=== PATIENT | female | born 1935 | race Caucasian/White ===

== ENCOUNTER → 2017-10-25 | Emergency (ER) | payer MEDICARE ==
[~2017-10-25] MED LIST: Furosemide 40 MG/4 ML VIAL ONE
[2017-10-25 21:56] LABS: #Eosinphils 0.1 thou/uL (0.0-0.7); #Lymphocytes 1.3 thou/uL (1.20-3.40); #Monocytes 0.4 thou/uL (0.11-0.59); #Neutrophils 4.6 thou/uL (1.40-6.50); %Basophils 0.6 % (0.0-1.0); %Eosinophils 0.8 % (0.0-10.0); %Monocytes 6.1 % (0.0-10.0); %Neutrophils 72.5 % (42.0-75.0); Hemoglobin 13.3 g/dL (12.0-16.0); Mean Corpuscular HGB CONC 32.6 g/dL (32.0-36.0); Mean Corpuscular Hemoglobin 30.5 pg (27.0-31.0); Mean Corpuscular Volume 93.8 fl (81.0-99.0); Mean Platelet Volume 5.3 fL (7.4-10.4); Platelet Count 202 thou/uL (130-400); Red Blood Cell (RBC) Count 4.37 mill/uL (4.20-5.40); White Blood Cell (WBC) Count 6.3 thou/uL (4.8-10.8)
[2017-10-25 22:08] LABS: ALT (SGPT) 24 U/L (8-55); AST (SGOT) 19 U/L (5-34); Alkaline Phosphatase 91 U/L (40-150); Anion Gap 18 mmol/L (10-20); BUN (Urea Nitrogen) 19 mg/dL (9.8-20.1); Bilirubin, Total 0.5 mg/dL (0.2-1.2); Calc. Creatinine Clearance 0 mL/min (70-130); Calcium 9.6 mg/dL (7.8-10.44); Carbon Dioxide 25 mmol/L (23-31); Chloride 104 mmol/L (98-107); Estimated GFR-MDRD 69; Globulin 2.8 g/dL (2.4-3.5); Glucose 122 mg/dL (83-110); Lipase 18 U/L (8-78); Potassium 3.8 mmol/L (3.5-5.1); Protein, Total 6.8 g/dL (6.0-8.3); Sodium 143 mmol/L (136-145)
[2017-10-25 22:09] LABS: CKMB 1.7 ng/mL (0-6.6); Troponin I 0.013 ng/mL (< 0.028)
--- NOTE | 2017-10-25 23:48 | RAD ---
PORTABLE CHEST 10/25/17 An AP portable film at 2128 is compared with a prior study dated 06/13/16. The heart size may be slightly bigger, but it is still similar to before. There are no clear signs of vascular congestion, edema or pleural fluid right now. Some lingular scarring is suggested. The lung s are otherwise clear. IMPRESSION: No definite acute finding. POS: HOME
== END ==
LOC: BURERS 21:11
DX: I11.0 Hypertensive heart disease with heart failure (principal); I50.9 Heart failure, unspecified; E78.5 Hyperlipidemia, unspecified; G47.30 Sleep apnea, unspecified; F41.9 Anxiety disorder, unspecified; F32.9 Major depressive disorder, single episode, unspecified; Z79.82 Long term (current) use of aspirin; Z79.899 Other long term (current) drug therapy
CPT/HCPCS: 71045; 80053; 82553; 83690; 83880; 84484; 85025; 93005; 96374; J1940

== ENCOUNTER 2018-08-06 17:22 | Emergency (ER) | payer MEDICARE ==
[2018-08-06] MEDS ORDERED: Ondansetron ODT 4 MG TAB ONE (17:39)
[2018-08-06] MEDS ORDERED: Ondansetron PF 4 MG/2 ML Vial ONE (17:47)
[2018-08-06] MEDS ORDERED: Nitroglycerin 0.4 MG TAB (25 Tab Bottle) ONE (17:47)
[2018-08-06 18:05] LABS: #Lymphocytes 2.1 thou/uL (1.20-3.40); #Monocytes 0.3 thou/uL (0.11-0.59); %Basophils 0.5 % (0.0-1.0); %Eosinophils 0.4 % (0.0-10.0); %Lymphocytes 27.6 % (21.0-51.0); %Monocytes 4.6 % (0.0-10.0); %Neutrophils 66.9 % (42.0-75.0); Hemoglobin 13.8 g/dL (12.0-16.0); Mean Corpuscular HGB CONC 31.7 g/dL (32.0-36.0); Mean Corpuscular Hemoglobin 29.6 pg (27.0-31.0); Mean Corpuscular Volume 93.3 fL (78.0-98.0); Mean Platelet Volume 6.7 fL (7.4-10.4); Platelet Count 206 thou/uL (130-400); Red Blood Cell (RBC) Count 4.66 mill/uL (4.20-5.40); White Blood Cell (WBC) Count 7.5 thou/uL (4.8-10.8)
[2018-08-06 18:17] LABS: ALT (SGPT) 25 U/L (8-55); AST (SGOT) 22 U/L (5-34); Albumin 4.5 g/dL (3.4-4.8); Alkaline Phosphatase 81 U/L (40-150); Anion Gap 17 mmol/L (10-20); BUN (Urea Nitrogen) 26 mg/dL (9.8-20.1); Bilirubin, Total 0.5 mg/dL (0.2-1.2); Calc. Creatinine Clearance 0 mL/min (70-130); Calcium 10.2 mg/dL (7.8-10.44); Carbon Dioxide 28 mmol/L (23-31); Chloride 103 mmol/L (98-107); Estimated GFR-MDRD 38; Globulin 3.4 g/dL (2.4-3.5); Glucose 104 mg/dL (83-110); Potassium 4.5 mmol/L (3.5-5.1); Protein, Total 7.9 g/dL (6.0-8.3); Sodium 143 mmol/L (136-145)
[2018-08-06 18:19] LABS: CKMB 1.5 ng/mL (0-6.6); Troponin I Less than 0.010 ng/mL (< 0.028)
[2018-08-06] MEDS ORDERED: Morphine 4 MG/ML VIAL ONE (18:55)
--- NOTE | 2018-08-06 20:12 | RAD ---
SINGLE VIEW OF THE CHEST 08/06/18 COMPARISON: 01/12/18. HISTORY: Chest pain. FINDINGS: Single view of the chest shows an enlarged but stable cardiomediastinal silhouette. The pacemaker is unchanged in position. There is no evidence of consolidation, mass, or pleural effusion. IMPRESSION: Stable cardiomegaly. POS: [facility]
== END 2018-08-06 20:25 | disposition short-term general hospital (02) ==
LOC: BURERS 17:22
DX: R07.2 Precordial pain (principal); I11.0 Hypertensive heart disease with heart failure; I50.9 Heart failure, unspecified; E78.5 Hyperlipidemia, unspecified; I48.91 Unspecified atrial fibrillation; I25.10 Atherosclerotic heart disease of native coronary artery without angina pectoris; G47.30 Sleep apnea, unspecified; Z79.82 Long term (current) use of aspirin; Z79.01 Long term (current) use of anticoagulants; Z79.899 Other long term (current) drug therapy
CPT/HCPCS: 71045; 80053; 82553; 83880; 84484; 85025; 85379; 93005; 96374; J2270; J2405; Q0162

== ENCOUNTER 2019-02-07 09:46 | Emergency (ER) | payer MEDICARE ==
[2019-02-07] MEDS ORDERED: HYDROcodone/Acetaminophen 5/325 mg Tablet ONE (10:07)
--- NOTE | 2019-02-07 11:38 | RAD ---
CHEST 2 VIEWS: DATE: 02/07/2019. FINDINGS: Comparison is made with an 08/06/2018 study. The heart is normal in size. Calcification is seen in the aortic arch. The cardiac pacer remains in place. There is no congestive change or pleural effusion. A little bit of lingular scarring is sug gested. There are no large effusions or focal pulmonary infiltrates of concern. No fractures were s een, though subtle rib fractures would be easily missed in this patient. Degenerative changes are pr esent throughout the thoracic spine. IMPRESSION: No acute finding. POS: HOME
== END 2019-02-07 10:39 | disposition home or self-care (01) ==
LOC: BURERS 09:46
DX: R07.2 Precordial pain (principal); I48.91 Unspecified atrial fibrillation; I50.9 Heart failure, unspecified; I11.0 Hypertensive heart disease with heart failure; E78.5 Hyperlipidemia, unspecified; G47.30 Sleep apnea, unspecified; Z79.01 Long term (current) use of anticoagulants; Z79.899 Other long term (current) drug therapy; Z79.84 Long term (current) use of oral hypoglycemic drugs; X50.1XXA Overexertion from prolonged static or awkward postures, initial encounter
CPT/HCPCS: 71046

== ENCOUNTER 2019-02-11 11:50 | Outpatient (CLI) | payer MEDICARE ==
--- NOTE | 2019-02-11 20:01 | RAD ---
RIGHT RIBS 02/11/19 Multiple views show a fracture near the distal end of the right 8th rib. There may be a fracture of t he 9th rib as well, but this is less certain. The adjacent lung is normal in appearance with no infil trate, effusion, or evidence of pneumothorax. IMPRESSION: Fracture of the right 8th and possibly also the 9th ribs. Code T POS: HOME
== END 2019-02-11 11:51 | disposition home or self-care (01) ==
LOC: BURRAD 11:50
PROVIDERS: ATTEND Family Medicine
DX: R07.81 Pleurodynia (principal); S22.31XA Fracture of one rib, right side, initial encounter for closed fracture

== ENCOUNTER 2019-03-13 13:47 | Emergency (ER) | payer MEDICARE ==
[2019-03-13 14:39] LABS: #Monocytes 0.5 thou/uL (0.11-0.59); #Neutrophils 9.4 thou/uL (1.40-6.50); %Basophils 0.3 % (0.0-1.0); %Eosinophils 0.1 % (0.0-10.0); %Lymphocytes 8.8 % (21.0-51.0); %Monocytes 4.6 % (0.0-10.0); %Neutrophils 86.3 % (42.0-75.0); Hemoglobin 12.5 g/dL (12.0-16.0); Mean Corpuscular HGB CONC 30.5 g/dL (32.0-36.0); Mean Corpuscular Hemoglobin 29.9 pg (27.0-31.0); Mean Platelet Volume 5.6 fL (7.4-10.4); Platelet Count 232 thou/uL (130-400); RBC Distribution Width 13.7 % (11.5-14.5); Red Blood Cell (RBC) Count 4.18 mill/uL (4.20-5.40); White Blood Cell (WBC) Count 10.9 thou/uL (4.8-10.8)
[2019-03-13 14:42] LABS: Clarity Clear (Clear)
[2019-03-13 14:43] LABS: Bilirubin Negative (Negative); Blood, Urine Negative (Negative); Glucose, Urine (Dipstick) Negative (Negative); Leukocyte Negative (Negative); Nitrite Negative (Negative); Protein, Urine (Dipstick) Negative (Neg-Trace); Urobilinogen 0.2 mg/dL (0.2-1.0); pH, Urine 6.5 (5.0-9.0)
[2019-03-13 14:45] LABS: INR-International Normal Ratio 1.3; PTT 25.6 SEC (22.9-36.1); Prothrombin Time 16.7 SEC (12.0-14.7)
[2019-03-13 14:53] LABS: ALT (SGPT) 24 U/L (8-55); AST (SGOT) 19 U/L (5-34); Albumin 4.1 g/dL (3.4-4.8); Alkaline Phosphatase 90 U/L (40-150); Anion Gap 17 mmol/L (10-20); BUN (Urea Nitrogen) 24 mg/dL (9.8-20.1); Bilirubin, Total 0.6 mg/dL (0.2-1.2); Calc. Creatinine Clearance 0 mL/min (70-130); Carbon Dioxide 29 mmol/L (23-31); Chloride 100 mmol/L (98-107); Estimated GFR-MDRD 61; Globulin 2.9 g/dL (2.4-3.5); Glucose 118 mg/dL (83-110); Potassium 4.3 mmol/L (3.5-5.1); Sodium 142 mmol/L (136-145)
--- NOTE | 2019-03-13 15:09 | RAD ---
CHEST 2 VIEWS: Date: 03/13/19 Comparison made with the 02/07/19 study. FINDINGS: There is some haziness to the left of the heart that may be an early infiltrate. The area around the right hilum is prominent compared to last month's study. All of these suggest current active disease that needs to be followed to complete resolution. No effusions are present. The upper lobes are clear . The heart size is normal. The cardiac pacer remains in place. There is no sign of congestive failur e. IMPRESSION: Haziness in the left mid lung zone and some increased opacity around the right hilum. Early infection is possible. This patient needs to be followed to complete clearing, and if such does not occur, the n a CT would be needed for further investigation. CODE T. POS: HOME
[2019-03-13] MEDS ORDERED: Sodium Chloride 0.9% 100 ML ONE (15:47)
[2019-03-13] MEDS ORDERED: Piperacillin/Tazobactam 4.5 GM VIAL ONE (15:47)
== END 2019-03-13 15:49 | disposition short-term general hospital (02) ==
LOC: BURERS 13:47
DX: J18.1 Lobar pneumonia, unspecified organism (principal); R04.2 Hemoptysis; I11.0 Hypertensive heart disease with heart failure; I50.9 Heart failure, unspecified; I48.91 Unspecified atrial fibrillation; E78.5 Hyperlipidemia, unspecified; I25.10 Atherosclerotic heart disease of native coronary artery without angina pectoris; Z79.899 Other long term (current) drug therapy; Z79.84 Long term (current) use of oral hypoglycemic drugs; Z79.82 Long term (current) use of aspirin
CPT/HCPCS: 36415; 71046; 80053; 81003; 83605; 84484; 85025; 85610; 85730; 87040; 87804; 93005; 94640; 94760; 96365; J1956; J2543; J3490; J7620

== ENCOUNTER 2019-12-17 19:23 | Emergency (ER) | payer MEDICARE ==
--- NOTE | 2019-12-17 20:18 | RAD ---
2 view chest: [12/17/2019] Comparison:03/13/2019 HISTORY: Cough with congestion FINDINGS: Stable prominence of the cardiac silhouette. Stable small/moderate hiatal hernia. Stable du al lead transvenous pacing device. Stable atherosclerotic calcification of the aortic arch. No focal consolidation or alveolar edema. IMPRESSION: No acute findings.
== END 2019-12-17 20:30 | disposition home or self-care (01) ==
LOC: BURERS 19:23
DX: J20.9 Acute bronchitis, unspecified (principal); I11.0 Hypertensive heart disease with heart failure; I50.9 Heart failure, unspecified; I48.91 Unspecified atrial fibrillation; E78.5 Hyperlipidemia, unspecified; I49.9 Cardiac arrhythmia, unspecified; E78.00 Pure hypercholesterolemia, unspecified; I25.10 Atherosclerotic heart disease of native coronary artery without angina pectoris; G47.30 Sleep apnea, unspecified; R73.03 Prediabetes; Z79.84 Long term (current) use of oral hypoglycemic drugs; Z79.899 Other long term (current) drug therapy; Z79.01 Long term (current) use of anticoagulants
CPT/HCPCS: 71046; 94640; J7620

== ENCOUNTER 2021-09-28 18:38 | Emergency (ER) | payer MEDICARE ==
[2021-09-30 00:27] LABS: SARS-CoV-2 PCR by NAA Not Detected (NotDetected)
== END 2021-09-28 19:30 | disposition home or self-care (01) ==
LOC: BURERS 18:38
DX: M79.10 Myalgia, unspecified site (principal); E78.5 Hyperlipidemia, unspecified; I48.91 Unspecified atrial fibrillation; E78.00 Pure hypercholesterolemia, unspecified; I11.0 Hypertensive heart disease with heart failure; I50.9 Heart failure, unspecified; Z20.822 Contact with and (suspected) exposure to COVID-19
CPT/HCPCS: 87804 ×2; U0003; U0005; 99284

== ENCOUNTER 2023-01-12 14:33 | Emergency (ER) | payer MEDICARE ==
[~2023-01-12 14:33] MED LIST changes: -Furosemide 40 MG/4 ML VIAL ONE; +Iopamidol 370 76% 100 ML VIAL ONE
[2023-01-12 15:01] LABS: #Eosinphils 0.1 thou/uL (0.0-0.7); #Lymphocytes 1.3 thou/uL (1.20-3.40); #Monocytes 0.3 thou/uL (0.11-0.59); #Neutrophils 4.5 thou/uL (1.40-6.50); %Basophils 0.7 % (0.0-1.0); %Eosinophils 0.9 % (0.0-10.0); %Lymphocytes 20.6 % (21.0-51.0); %Monocytes 4.2 % (0.0-10.0); %Neutrophils 73.5 % (42.0-75.0); Mean Corpuscular HGB CONC 30.6 g/dL (32.0-36.0); Mean Corpuscular Hemoglobin 29.3 pg (27.0-31.0); Mean Corpuscular Volume 95.8 fl (78.0-98.0); Mean Platelet Volume 7.1 fL (7.4-10.4); Platelet Count 182 10x3/uL (130-400); RBC Distribution Width 14.7 % (11.5-14.5); Red Blood Cell (RBC) Count 4.78 mill/uL (4.20-5.40); White Blood Cell (WBC) Count 6.2 10x3/uL (4.8-10.8)
[2023-01-12 15:06] LABS: INR-International Normal Ratio 1.2; Prothrombin Time 15.4 sec (12.0-14.7)
[2023-01-12 15:07] LABS: PTT 31.6 sec (22.9-36.1)
[2023-01-12 15:12] LABS: ALT (SGPT) 17 U/L (8-55); AST (SGOT) 21 U/L (5-34); Albumin 4.2 g/dL (3.4-4.8); Alkaline Phosphatase 89 U/L (40-110); Anion Gap 14 mmol/L (10-20); BUN (Urea Nitrogen) 20 mg/dL (9.8-20.1); Bilirubin, Total 0.6 mg/dL (0.2-1.2); Calc. Creatinine Clearance 0 mL/min (70-130); Calcium 9.3 mg/dL (7.8-10.44); Carbon Dioxide 26 mmol/L (23-31); Chloride 105 mmol/L (98-107); Estimated GFR 48; Globulin 2.7 g/dL (2.4-3.5); Glucose 166 mg/dL (83-110); Potassium 4.4 mmol/L (3.5-5.1); Protein, Total 6.9 g/dL (5.8-8.1); Sodium 141 mmol/L (136-145)
== END 2023-01-12 16:08 | disposition short-term general hospital (02) ==
LOC: BURERS 14:33
DX: G45.9 Transient cerebral ischemic attack, unspecified (principal); I11.0 Hypertensive heart disease with heart failure; I50.9 Heart failure, unspecified; R29.700 NIHSS score 0; E78.5 Hyperlipidemia, unspecified; Z79.899 Other long term (current) drug therapy; Z79.01 Long term (current) use of anticoagulants; Z79.84 Long term (current) use of oral hypoglycemic drugs; R73.03 Prediabetes
CPT/HCPCS: 36416; 70450; 70496; 70498; 80053; 84484; 85025; 85610; 85730; 93005; Q9967

== ENCOUNTER 2023-06-02 16:15 | Outpatient (CLI) | payer MEDICARE | END 2023-06-02 16:16 | disposition home or self-care (01) | LOC: BURRAD 16:15 | PROVIDERS: ATTEND Family Medicine | DX: M48.54XA Collapsed vertebra, not elsewhere classified, thoracic region, initial encounter for fracture (principal); M47.814 Spondylosis without myelopathy or radiculopathy, thoracic region; M51.34 Other intervertebral disc degeneration, thoracic region | CPT/HCPCS: 72070 ==

== ENCOUNTER 2023-09-29 10:22 | Emergency (ER) | payer MEDICARE ==
[2023-09-29 10:39] LABS: Bilirubin Negative (Negative); Blood, Urine Large (Negative); Clarity Cloudy (Clear); Glucose, Urine (Dipstick) >=1000 mg/dL (Negative); Ketone, Urine Negative (Negative); Leukocyte Trace (Negative); Nitrite Negative (Negative); Protein, Urine (Dipstick) > or equal to 300 mg/dL (Neg-Trace); Specific Gravity, Urine 1.025 (1.005-1.030); Urobilinogen 0.2 mg/dL (Less than 2); pH, Urine 5.5 (5.0-9.0)
[2023-09-29 10:49] LABS: RBC/HPF Greater than 50 HPF (0-3)
[2023-09-29 10:50] LABS: Bacteria/HPF 1+ HPF (None Seen); CAUTI Indications for Culture Acute Hematuria; WBC/HPF 0-3 HPF (0-3)
[2023-09-29 10:51] LABS: Urine Culture Reflex No No
[2023-09-29 11:22] LABS: #Lymphocytes 1.1 thou/uL (1.20-3.40); #Monocytes 0.4 thou/uL (0.11-0.59); #Neutrophils 6.4 thou/uL (1.40-6.50); %Basophils 0.5 % (0.0-1.0); %Eosinophils 0.5 % (0.0-10.0); %Lymphocytes 14.1 % (21.0-51.0); %Monocytes 5.1 % (0.0-10.0); %Neutrophils 79.8 % (42.0-75.0); Hematocrit 43.2 % (36.0-47.0); Hemoglobin 14.1 g/dL (12.0-16.0); Mean Corpuscular HGB CONC 32.6 g/dL (32.0-36.0); Mean Corpuscular Hemoglobin 30.4 pg (27.0-31.0); Mean Corpuscular Volume 93.1 fl (78.0-98.0); Mean Platelet Volume 5.8 fL (7.4-10.4); Platelet Count 167 10x3/uL (130-400); Red Blood Cell (RBC) Count 4.64 mill/uL (4.20-5.40)
[2023-09-29 11:36] LABS: ALT (SGPT) 16 U/L (8-55); AST (SGOT) 18 U/L (5-34); Albumin 4.3 g/dL (3.4-4.8); Alkaline Phosphatase 87 U/L (40-110); Anion Gap 15 mmol/L (10-20); BUN (Urea Nitrogen) 19 mg/dL (9.8-20.1); Bilirubin, Total 0.9 mg/dL (0.2-1.2); Calc. Creatinine Clearance 0 mL/min (70-130); Carbon Dioxide 25 mmol/L (23-31); Chloride 103 mmol/L (98-107); Estimated GFR 59; Globulin 3.4 g/dL (2.4-3.5); Glucose 119 mg/dL (83-110); Lipase 19 U/L (8-78); Potassium 4.1 mmol/L (3.5-5.1); Protein, Total 7.7 g/dL (5.8-8.1); Sodium 139 mmol/L (136-145)
[2023-09-29] MEDS ORDERED: Sterile Water 10 ML ONE (11:49)
[2023-09-29] MEDS ORDERED: cefTRIAXone (ROCEPHIN) 1 GM VIAL ONE (11:50)
== END 2023-09-29 12:14 | disposition home or self-care (01) ==
LOC: BURERS 10:22
DX: N39.0 Urinary tract infection, site not specified (principal); I11.0 Hypertensive heart disease with heart failure; I50.9 Heart failure, unspecified; E78.5 Hyperlipidemia, unspecified; E11.9 Type 2 diabetes mellitus without complications; Z79.84 Long term (current) use of oral hypoglycemic drugs; Z79.899 Other long term (current) drug therapy
CPT/HCPCS: 36415; 74176; 80053; 81001; 83690; 85025; 87077; 87086; 87186; 96372; J0696

== ENCOUNTER 2023-11-28 22:33 | Emergency (ER) | payer MEDICARE ==
[~2023-11-28 22:33] MED LIST changes: +HYDROcodone/Acetaminophen 5/325 mg Tablet ONE; -Iopamidol 370 76% 100 ML VIAL ONE; +predniSONE 20 MG TAB ONE
[2023-11-28] MEDS ORDERED: Morphine 4 MG/ML VIAL ONE (23:10)
== END 2023-11-29 00:38 | disposition home or self-care (01) ==
LOC: BURERS 22:33
DX: M54.50 Low back pain, unspecified (principal); I48.91 Unspecified atrial fibrillation; I11.0 Hypertensive heart disease with heart failure; I50.9 Heart failure, unspecified; Z95.0 Presence of cardiac pacemaker
CPT/HCPCS: 74176; 96372; J2270; J7512

== ENCOUNTER 2023-12-03 14:52 | Outpatient (CLI) | payer MEDICARE | END 2023-12-03 14:53 | disposition home or self-care (01) | LOC: BURRAD 14:52 | PROVIDERS: ATTEND Family Medicine | DX: M54.6 Pain in thoracic spine (principal); M54.50 Low back pain, unspecified; G89.29 Other chronic pain; M47.814 Spondylosis without myelopathy or radiculopathy, thoracic region; M47.816 Spondylosis without myelopathy or radiculopathy, lumbar region | CPT/HCPCS: 72072; 72100 ==

== ENCOUNTER 2025-06-26 10:21 | Emergency (ER) | payer MEDICARE ==
[2025-06-26] MEDS ORDERED: Acetaminophen 500 MG TAB ONE (10:53)
== END 2025-06-26 12:15 | disposition home or self-care (01) ==
LOC: BURERS 10:21
DX: S29.011A Strain of muscle and tendon of front wall of thorax, initial encounter (principal); I11.0 Hypertensive heart disease with heart failure; I50.9 Heart failure, unspecified; I48.91 Unspecified atrial fibrillation; I25.10 Atherosclerotic heart disease of native coronary artery without angina pectoris; X50.0XXA Overexertion from strenuous movement or load, initial encounter; Z95.0 Presence of cardiac pacemaker; Z79.01 Long term (current) use of anticoagulants; Z79.899 Other long term (current) drug therapy
CPT/HCPCS: 71250